=== PATIENT | female | born 1945 | race Caucasian/White ===

== ENCOUNTER → 2016-09-08 | Outpatient (CLI) | payer MEDICARE, OTHER | END | disposition home or self-care (01) | LOC: CFH 16:41 | PROVIDERS: ATTEND Physician Assistant | DX: J18.9 Pneumonia, unspecified organism (principal); J90 Pleural effusion, not elsewhere classified; Z87.81 Personal history of (healed) traumatic fracture | CPT/HCPCS: 71020 ==

== ENCOUNTER → 2016-10-18 | Outpatient (CLI) | payer MEDICARE, OTHER | END | disposition home or self-care (01) | LOC: CFH 08:43 | PROVIDERS: ATTEND Physician Assistant | DX: J18.9 Pneumonia, unspecified organism (principal); Z87.81 Personal history of (healed) traumatic fracture | CPT/HCPCS: 71020 ==